=== PATIENT | female | born 1935 | race Caucasian/White ===

== ENCOUNTER 2017-02-15 18:19 | Inpatient (IN) | payer MEDICARE, OTHER ==
--- NOTE | ~2017-02-15 | DS ---
Discharge Summary [facility] [address] [place]. [address] NAME: SASKIA BOURNE : 34 STATUS : DIS IN PAT#: [id number] AGE: 81 ADM/REG DATE : 02/16/17 MR#: [id number] REPORT SERV DATE: 02/19/17 DICTATED BY: CHRISTOPHER AGUIRRE DATE: 02/18/17 REPORT STATUS : Draft TRANSCRIBED BY: MODKarly DATE: 02/18/17 ADMISSION DATE: 02/15/2017 DISCHARGE DATE: 02/18/2017 DISCHARGE DIAGNOSES: 1. Community-acquired pneumonia, left lower lobe. 2. Hypoxemia, improved. 3. Hypertension. 4. Diabetes mellitus type 2. IMAGING: Chest x-ray, 02/15/2017, impression: Left basilar consolidation, likely representing pneumonia. 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 Borderline enlargement of the cardiac silhouette. LABORATORY DATA: 02/18/2017: WBC 12.1, hemoglobin 10.5, hematocrit 31.8, platelet count 323. HOSPITAL STAY: Please refer to history and physical dictated on 02/15/[address] Kahn for complete admission details. This patient is an 81-year-old female who presented to [facility] Emergency Room with complaints of fever, chills, cough, and difficulty breathing. According to the patient, symptoms began Thursday before admission. The patient felt like she had the flu having difficulty breathing. The patient was admitted to the hospital. Imaging was obtained which is noted above, which showed possible pneumonia in the left lower lobe. Laboratory data showed WBC count of 26.6. The patient needed supplemental O2. Respiratory treatments were provided. The patient was initially started on Rocephin and Zithromax. The patient will be discharged home to complete 5 days of Zithromax at home. The patient will have a home O2 evaluation prior to discharge. She will follow up with her primary care in 7-10 days. Upon discharge, WBC count is 12.1. The patient is afebrile. Blood cultures were negative. The patient will resume all other home medications. DISCHARGE MEDICATIONS: 1. Norvasc 5 mg one p.o. at bedtime. 2. Vitamin C 500 mg one p.o. daily. 3. Aspirin 81 mg one at bedtime. 4. Aleve 220 mg, 440 mg p.o. p.r.n. daily for back pain. 5. Motrin 200 mg p.o. every six hours p.r.n. for pain. 6. Flonase nasal spray 50 mcg spray one daily. 7. Amaryl 4 mg one p.o. daily. 8. Lantus 24 units subcutaneously at bedtime. 9. Potassium 20 mEq p.o. daily. 10.Pravachol 20 mg one p.o. at bedtime. 11.Zoloft 50 mg one p.o. at bedtime. 12.Demadex 20 mg one p.o. daily. 13.Zithromax 500 mg one p.o. daily x2 days. Discharge Summary [facility] [address] [place] [address] NAME: SASKIA BOURNE : 34 STATUS : DIS IN PAT#: [id number] AGE: 81 ADM/REG DATE : 02/16/17 MR#: [id number] REPORT SERV DATE: 02/19/17 DICTATED BY: CHRISTOPHER AGUIRRE DATE: 02/18/17 REPORT STATUS : Draft TRANSCRIBED BY: RUBEN DATE: 02/18/17 14.Diovan HCT 320/12.5 mg one tablet daily. 15.Vitamin D over the counter. 16.Lysine tears one drop ophthalmic daily in each eye. 17.Vitamin B12 cygm-edk-onuivfo daily. 18.Tylenol 325 mg, 650 mg p.o. every six hours p.r.n. for pain. 19.CoQ10, OTC one tablet daily. 20.Biotin capsule hard nails one daily. 21.ProAir one to two puffs p.r.n. for shortness of breath. This discharge took less than 30 minutes. DICTATED BY: JAMAL Zayas/RUBEN Christopher Aguirre NP / [id number] CC: Shakir Hernandez M.D.
--- NOTE | ~2017-02-15 | HP ---
History And Physical [facility] [id number] [place]. [address] NAME: SASKIA CID : [id number] STATUS : ADM Arielle PAT#: [id number] AGE: 81 ADM/REG DATE : 02/15/17 MR#: [id number] REPORT SERV DATE: 02/15/17 DICTATED BY: FRANCESCO KAHN DATE: 02/15/17 REPORT STATUS : Draft TRANSCRIBED BY: MODL DATE: 02/15/17 DATE OF ADMISSION: 02/15/2017 CHIEF COMPLAINT: Fever, chills, cough, and difficulty breathing. HISTORY OF PRESENT ILLNESS: This is an 81-year-old female with a history of hypertension, diabetes, depression and anxiety, who is very active and still works, who presents to the emergency room at [facility] with the above-mentioned complaint. History is obtained from the patient, her son who is at bedside, and reviewing data available on the [facility] system. According to available data, Mrs. Cid was in her usual state of health until Thursday when she started aching all over her body. She thought she was having a flu, but then started having difficulty breathing. She also had a cough which was essentially productive of greenish yellowish sputum without any hemoptysis. She was not doing well today, was unable to get up and do activities of daily living. She felt really horrible, had fever of 101 degrees Fahrenheit, and decided to come to the emergency room to be evaluated. In the emergency room, initial workup revealed she had leukocytosis. She presents with hypoxia and a chest x-ray showed left lower lobe infiltrate as well. Hospitalist Service was asked to admit her for further evaluation and treatment. At the time of my evaluation, she denied any chest pain or palpitations. She had no orthopnea. She did have a cough productive of yellowish to greenish sputum without any hemoptysis, night sweats or weight loss. She has had no falls or loss of consciousness, but did have a headache. No history of nausea, vomiting, or diarrhea. No history of hematemesis, hematochezia, or hematuria. No other history of recent travel or exposures other than those mentioned above. PAST MEDICAL HISTORY: Significant for history of hypertension, diabetes mellitus type 2, depression, and anxiety. SOCIAL HISTORY: She has about the [id number]-lghh history of smoking, although she quit more than 20 years ago. She does not take alcohol use or use recreational drugs. 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 FAMILY HISTORY: Noncontributory. MEDICATIONS: At home were reviewed by me in the chart today and reordered by me. REVIEW OF SYSTEMS: As in history of present illness. All other systems were reviewed in detail and are quite unremarkable. PHYSICAL EXAMINATION: GENERAL: This is a pleasant 81-year-old, not in any acute distress. History And Physical [address] [address] NAME: SASKIA CID : 34 STATUS : ADM Arielle PAT#: [id number] AGE: 81 ADM/REG DATE : 02/15/17 MR#: [id number] REPORT SERV DATE: 02/15/17 DICTATED BY: FRANCESCO KAHN DATE: 02/15/17 REPORT STATUS : Draft TRANSCRIBED BY: RUBEN DATE: 02/15/17 HEENT: Her head is atraumatic, normocephalic. She is alert, awake, oriented to time, place, and person. Her pupils are equal, reacting to light and accommodating. External ocular muscles are intact. Membranes are moist and pink. Sclerae are nonicteric. NECK: Supple with no jugular venous distention, lymphadenopathy, or thyromegaly. LUNGS: Clear to auscultation with no wheezes, rubs, or crackles. HEART: Heart sounds were regular with no murmurs, rubs, or gallops. ABDOMEN: Soft, nontender. Bowel sounds are present. EXTREMITIES: Showed no cyanosis, clubbing, or edema. NEUROLOGIC: Grossly intact. No focal sensory or motor deficits. Higher functions appeared intact. She was able to move all four extremities. VITAL SIGNS: Her vital signs today showed a temperature of 100.3 degrees Fahrenheit upon arrival here, pulse was 66, respirations 22 a minute, blood pressure was 139/49, oxygen saturations were 96%, breathing 2 L of oxygen. Upon arrival, her oxygen saturations were 89% on 2-3 L. LABORATORY DATA: Reviewed on the [facility] system showed normal CMP with a blood glucose of 148. [place] a [place] [address], normal hemoglobin, hematocrit, and platelet count. Influenza A and B were negative today and urinalysis was unremarkable. Films of the chest x-ray was reviewed by me on the PACS today and interpreted by me. Per my interpretation, there is normal bony architecture with no cardiomegaly. There is a left lower lobe infiltrate, but without any effusions. A 12-lead EKG done in the emergency room was reviewed and interpreted by me. There is sinus rhythm at a rate of 60 a minute without any acute ST changes. IMPRESSION: 1. Community-acquired pneumonia, left lower lobe. 2. Hypoxemia. 3. Leukocytosis. 4. Essential hypertension. 5. Diabetes mellitus type 2. 6. Depression and anxiety. PLAN: We will admit Mrs. Cid to the Hospitalist Service with defensive monitoring for a 24 hour observation. After cultures are drawn, we will start her on empiric IV antibiotics for community-acquired pneumonia. Follow Gram stain cultures and proceed accordingly. We will start her on bronchodilator treatments and continue her supplemental oxygen therapy. We will also establish blood sugar control with NovoLog given subcutaneously per sliding scale and check her A1c. We will continue home medications and treatments. We will also place her on unfractionated heparin for DVT prophylaxis. I have discussed above plans with the patient and her son. Questions were answered and they are agreeable to the above recommendations. Hospitalist Service will be following her during her stay here. MR/RUBEN History And Physical [address] [address] NAME: SASKIA CID : 34 STATUS : ADM Arielle PAT#: [id number] AGE: 81 ADM/REG DATE : 02/15/17 MR#: [id number] REPORT SERV DATE: 02/15/17 DICTATED BY: FRANCESCO KAHN DATE: 02/15/17 REPORT STATUS : Draft TRANSCRIBED BY: RUBEN DATE: 02/15/17 Francesco Kahn M.D. / [id number]
[2017-02-15 14:37] LABS: ALBUMIN 3.1 G/DL (3.5-5.0); CALCIUM, SERUM 8.9 MG/DL (8.5-10.4); CHLORIDE, SERUM 105 MMOL/L (96-112); CO2 (CARBON DIOXIDE) 27 MMOL/L (24-34); CREATININE 0.91 MG/DL (0.55-1.02); GFR AFRICAN AMERICAN 68 ML/MIN (>=60); GFR NON AFRICAN AMERICAN 59 ML/MIN (>=60); POTASSIUM, SERUM 4.5 MMOL/L (3.5-5.3); SGPT(ALT) 18 U/L (5-65); SODIUM, SERUM 138 MMOL/L (135-148); TOTAL PROTEIN 7.1 G/DL (6.0-8.5)
[2017-02-15 14:38] LABS: A/G RATIO 0.8 (0.7-1.9); ALKALINE PHOSPHATASE 84 U/L (45-117); BUN (BLOOD UREA NITROGEN) 13 MG/DL (6-23); GLUCOSE, SERUM 148 MG/DL (60-99); SGOT(AST) 22 U/L (5-40); TOTAL BILIRUBIN 0.8 MG/DL (0-1.2)
[2017-02-15 16:41] LABS: BASOPHILS 0.1 %; BASOPHILS ABSOLUTE 0.02 10/3/uL (0.0-0.16); EOSINOPHILS 0.3 %; EOSINOPHILS ABSOLUTE 0.09 10/3/uL (0.0-0.53); HEMATOCRIT 37.8 % (36.0-48.0); IMMATURE GRANULOCYTES 0.3 %; IMMATURE GRANULOCYTES ABSOLUTE 0.09 10/3/uL (0.0-0.11); LYMPHOCYTES 6.1 %; LYMPHOCYTES ABSOLUTE 1.63 10/3/uL (0.67-4.30); MEAN CORPUS HGB CONC 34.4 g/dL (32.0-36.0); MEAN CORPUSCULAR HEMOGLOB 32.5 pg (26.0-34.0); MEAN CORPUSCULAR VOLUME 94.5 fL (80-100); MEAN PLATELET VOLUME 9.4 fL (9.2-13.0); MONOCYTES 4.7 %; MONOCYTES ABSOLUTE 1.24 10/3/uL (0.21-1.20); NEUTROPHILS 88.5 %; NEUTROPHILS ABSOLUTE 23.49 10/3/uL (2.02-8.40); PLATELET COUNT 317 10/3/uL (150-400); RBC DISTRIBUTION WIDTH 13.4 % (12.0-16.0)
[2017-02-15 16:42] LABS: WHITE BLOOD CELLS 26.6 10/3/uL (4.5-10.5)
[2017-02-15 16:47] LABS: MANUAL DIFF YES %
[2017-02-15 16:55] LABS: INTERNATIONAL NORMAL RATI 1.3 UNITS (-); PROTIME (NOT ORD) 15.6 SEC (12.0-14.5)
[2017-02-15 16:56] LABS: PARTIAL THROMBO TIME 36.8 SEC (22.5-37.2)
[2017-02-15 17:01] LABS: LACTATE 1.4 MMOL/L (0.3-2.4)
[2017-02-15 17:08] LABS: ER DIFF TAT 0 Hrs 32 Mins; LYMPHOCYTES 6 %; MONOCYTES 3 %; NEUTROPHILS ABSOLUTE (CALC) 24.21 10/3/uL (2.02-8.40); SEGMENTED NEUTROPHIL (0) 91 %; TOTAL NUCLEATED CELLS 100
[2017-02-15 17:11] LABS: PLATELET ESTIMATE ADQ (ADEQUATE); RBC MORPHOLOGY NORM (NORMAL)
[2017-02-15 17:12] LABS: TOXIC GRANULATION SLT
[~2017-02-15 18:19] MED LIST: ALEVE220 MG PO; AMARYL2 PO; AMARYL4 PO; ASAB PO; BINOSTO70 MG PO; BUM1 PO; CALCIUM PO; CO Q-10200 MG PO; CYANO1000T PO; DIOVAN HC1 PO; ESTRADIOL TD; ESTRADIOL0.05 MG TD; FISH-EPA1000 MG PO; FLONASE NAS; FOSAMAX70 MG PO; HALF81 PO; KLONO5 PO; KLOR-CON M2020 MEQ PO; L40 PO; LEVEMFLXPN SC; LISINOPRIL40 MG PO; NAP375 PO; NAP500 PO; NOVOPEN SC; OS500+D PO; PRAVAC PO; ULTRAM50 PO; VITAMIN B-121000 MC1 SL; VITAMIN D31000 UNIT PO; VITAMIN D400 UNI1 PO; VITC500 PO; VITE PO; VIVELLE-DOT0.1 MG TOP; X5 PO; ZOL100 PO; ZOL50 PO; [UNRECOGNIZED DRUG - OTHER] OP
[2017-02-15 18:44] LABS: ASCORBIC ACID (UR NOT ORDER) 40 (NEG); BILIRUBIN, URINE NEGATIVE (NEG); ER URINALYSIS TAT 0 Hrs 12 Mins; KETONE, URINE NEGATIVE (NEG); LEUKOCYTE ESTERASE(NOT OR NEG (NEG); NITRITE (URINE) NEG (NEG); WBC (NOT ORDERED) (RFLEX) 1 (0-5)
[2017-02-15 18:55] LABS: INFLUENZA A SCREEN NEGATIVE (NEGATIVE); INFLUENZA B SCREEN NEGATIVE (NEGATIVE)
[2017-02-15] MEDS ORDERED: NORV5 PO (19:01)
[2017-02-15] MEDS ORDERED: HALF81 PO (19:03)
[2017-02-15] MEDS ORDERED: DIOVAN HC2 PO (19:03)
[2017-02-15] MEDS ORDERED: FLONASE NAS (19:04)
[2017-02-15] MEDS ORDERED: KLOR-CON M2020 MEQ PO (19:04)
[2017-02-15] MEDS ORDERED: LANTUS SC (19:05)
[2017-02-15] MEDS ORDERED: AMARYL4 PO (19:06)
[2017-02-15] MEDS ORDERED: PRAVAC PO (19:06)
[2017-02-15] MEDS ORDERED: VITAMIN D OTC PO (19:07)
[2017-02-15] MEDS ORDERED: ZOL50 PO (19:07)
[2017-02-15] MEDS ORDERED: VITC500 PO (19:09)
[2017-02-15] MEDS ORDERED: VITAMIN B12 OTC PO (19:09)
[2017-02-15] MEDS ORDERED: VISINE TEARS15 ML OPH (19:09)
[2017-02-15] MEDS ORDERED: T PO (19:12)
[2017-02-15] MEDS ORDERED: ALEVE220 MG PO (19:12)
[2017-02-15] MEDS ORDERED: CO-Q-10 OTC PO (19:13)
[2017-02-15] MEDS ORDERED: MOTRIN IB200 MG PO (19:13)
[2017-02-15] MEDS ORDERED: DEMA20 PO (19:13)
[2017-02-15] MEDS ORDERED: HARD NAILS PO (19:14)
[2017-02-16 05:50] LABS: BASOPHILS 0 %; BASOPHILS ABSOLUTE 0.01 10/3/uL (0.0-0.16); EOSINOPHILS 1.9 %; EOSINOPHILS ABSOLUTE 0.42 10/3/uL (0.0-0.53); HEMOGLOBIN 11.1 g/dL (12.0-16.0); IMMATURE GRANULOCYTES 0.4 %; IMMATURE GRANULOCYTES ABSOLUTE 0.09 10/3/uL (0.0-0.11); LYMPHOCYTES 5.9 %; MEAN CORPUS HGB CONC 34.4 g/dL (32.0-36.0); MEAN CORPUSCULAR HEMOGLOB 32.9 pg (26.0-34.0); MEAN CORPUSCULAR VOLUME 95.8 fL (80-100); MEAN PLATELET VOLUME 9.1 fL (9.2-13.0); MONOCYTES 6.2 %; MONOCYTES ABSOLUTE 1.38 10/3/uL (0.21-1.20); NEUTROPHILS 85.6 %; NEUTROPHILS ABSOLUTE 18.98 10/3/uL (2.02-8.40); PLATELET COUNT 287 10/3/uL (150-400); RBC DISTRIBUTION WIDTH 13.5 % (12.0-16.0); RED CELL COUNT 3.37 10/6/uL (4.0-5.6); WHITE BLOOD CELLS 22.2 10/3/uL (4.5-10.5)
[2017-02-16 05:55] LABS: HEMATOCRIT 32.3 % (36.0-48.0); MANUAL DIFF NO %
[2017-02-16 06:05] LABS: BUN (BLOOD UREA NITROGEN) 16 MG/DL (6-23); CALCIUM, SERUM 8.5 MG/DL (8.5-10.4); CHLORIDE, SERUM 106 MMOL/L (96-112); CREATININE 0.84 MG/DL (0.55-1.02); GFR AFRICAN AMERICAN 75 ML/MIN (>=60); GFR NON AFRICAN AMERICAN 65 ML/MIN (>=60); PHOSPHORUS, SERUM 2.8 MG/DL (2.5-4.5); POTASSIUM, SERUM 3.6 MMOL/L (3.5-5.3); SODIUM, SERUM 142 MMOL/L (135-148)
[2017-02-16 06:13] LABS: CO2 (CARBON DIOXIDE) 34 MMOL/L (24-34); GLUCOSE, SERUM 98 MG/DL (60-99)
[2017-02-17 05:21] LABS: BASOPHILS 0.1 %; BASOPHILS ABSOLUTE 0.02 10/3/uL (0.0-0.16); EOSINOPHILS 2.3 %; EOSINOPHILS ABSOLUTE 0.39 10/3/uL (0.0-0.53); HEMATOCRIT 30.2 % (36.0-48.0); HEMOGLOBIN 10.2 g/dL (12.0-16.0); IMMATURE GRANULOCYTES 0.4 %; IMMATURE GRANULOCYTES ABSOLUTE 0.06 10/3/uL (0.0-0.11); LYMPHOCYTES 10.8 %; LYMPHOCYTES ABSOLUTE 1.84 10/3/uL (0.67-4.30); MEAN CORPUS HGB CONC 33.8 g/dL (32.0-36.0); MEAN CORPUSCULAR HEMOGLOB 32.1 pg (26.0-34.0); MEAN PLATELET VOLUME 9.4 fL (9.2-13.0); MONOCYTES 6.7 %; MONOCYTES ABSOLUTE 1.14 10/3/uL (0.21-1.20); NEUTROPHILS 79.7 %; NEUTROPHILS ABSOLUTE 13.53 10/3/uL (2.02-8.40); PLATELET COUNT 302 10/3/uL (150-400); RBC DISTRIBUTION WIDTH 13.5 % (12.0-16.0); RED CELL COUNT 3.18 10/6/uL (4.0-5.6)
[2017-02-17 05:25] LABS: MANUAL DIFF NO %
[2017-02-18 04:33] LABS: BASOPHILS 0.2 %; BASOPHILS ABSOLUTE 0.02 10/3/uL (0.0-0.16); EOSINOPHILS 3.7 %; EOSINOPHILS ABSOLUTE 0.45 10/3/uL (0.0-0.53); HEMATOCRIT 31.8 % (36.0-48.0); HEMOGLOBIN 10.5 g/dL (12.0-16.0); IMMATURE GRANULOCYTES 0.3 %; IMMATURE GRANULOCYTES ABSOLUTE 0.04 10/3/uL (0.0-0.11); LYMPHOCYTES 17.2 %; LYMPHOCYTES ABSOLUTE 2.08 10/3/uL (0.67-4.30); MEAN PLATELET VOLUME 9.3 fL (9.2-13.0); MONOCYTES 8.4 %; MONOCYTES ABSOLUTE 1.02 10/3/uL (0.21-1.20); NEUTROPHILS 70.2 %; NEUTROPHILS ABSOLUTE 8.49 10/3/uL (2.02-8.40); PLATELET COUNT 323 10/3/uL (150-400); RBC DISTRIBUTION WIDTH 13.2 % (12.0-16.0); RED CELL COUNT 3.28 10/6/uL (4.0-5.6); WHITE BLOOD CELLS 12.1 10/3/uL (4.5-10.5)
[2017-02-18 04:34] LABS: MANUAL DIFF NO %
[2017-02-18] MEDS ORDERED: ZITHROMAX500 MG PO (13:36)
[2017-02-18] MEDS ORDERED: PROAIR HFA INH (13:37)
== END 2017-02-18 14:40 | disposition home or self-care (01) | DRG 871 ==
LOC: ER 18:19 → 4EA 20:43
PROVIDERS: Emergency Medicine; Internal Medicine; Internal Medicine Pulmonary Disease; Nurse Practitioner Adult Health
DX: A41.9 Sepsis, unspecified organism (principal); J18.9 Pneumonia, unspecified organism; J96.01 Acute respiratory failure with hypoxia; E11.9 Type 2 diabetes mellitus without complications; D72.829 Elevated white blood cell count, unspecified; I10 Essential (primary) hypertension; F32.9 Major depressive disorder, single episode, unspecified; F41.9 Anxiety disorder, unspecified
CPT/HCPCS: 71020; 80048; 80053; 81001; 82962; 83605; 83690; 83735; 84100; 84145; 85025; 85610; 85730; 87040; 87449; 87804; 93005; 94640; 96365; 96375; 99285; A9270-GY; J0456; J2405; J2930